=== PATIENT | female | born 1935 | race Caucasian/White ===

== ENCOUNTER 2016-09-14 08:37 | Inpatient (IN) | payer OTHER, MEDICARE ==
[2016-09-14] MEDS ORDERED: ADACEL TDaP IM ONE ×2 (08:53→08:55)
--- NOTE | 2016-09-14 08:56 | DR.GENAD ---
HPI - PCP Primary Care Physician: GERA - Complaint/Symptoms Chief Complaint Doctors Comments: Patient complains of weakness; not being able to walk with left sided abdominal and rib pain. States she has been hurting in every joint and has not been able to stand or walk. States she fell at home today hir right side of her head. She has been having dizziness and headache. She is unsure of her last tetanus. 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 Levy in [facility]. She is going to cancer doctor in [place]. She denies chest pain but has SOB at times. She denies dysuria or hematuria. States her mouth is dry and she has not been able to urinate for a while. She has a decreased appetite and has only been eating one bit of food before they take it away. Chief Complaint:: PT. C/O GENERALIZED WEAKNESS FOR A FEW DAYS WHICH WORSENED YESTERDAY. PT. ALSO HAD A FALL THIS MORNING. PT. C/O LOWER BACK PAIN AND ALSO C /O ABDOMINAL PAIN PER EMS. PT. HAS AN ABRASION NOTED TO ABOVE RIGHT EYE BROW. 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" Past Surgical History: Yes Surgical History: Abdominal Surgery, Cholecystectomy, Hysterectomy, Other Past Surgical History Comment: PORT A CATH - Family History History of Family Medical Conditions: Yes Family Medical History: Cancer - Social History Does patient currently use any type of tobacco product: No Have you used tobacco products in the last 12 months: No Type of Tobacco Use: None Does any household member use tobacco: No Alcohol Use: None Do you use any recreational Drugs:: No Lives With: Spouse Lives Where: Home - infectious screening In the last 2 months have you had wt loss of >10#?: NO Have you had fever, night sweats or hemotysis?: No Have you traveled outside the country in the last 6 months?: No Isolation: Standard ROS - Review of Systems Constitutional: No Symptoms Reported, Weakness, Loss of Appetite. negative: See HPI, Chills, Diaphoresis, Fever, Malaise, Irritable, Fatigue, Other Eyes: No Symptoms Reported. negative: See HPI, Eye Pain, Blurred Vision, Tearing, Discharge, Photophobia, Diplopia, Other ENTM: No Symptoms Reported Respiratoy: No Symptoms Reported, Short of Breath. negative: See HPI, Productive Cough, Non-Productive Cough, Moist Cough, Dry Cough, Hacking Cough, Barking Cough, Brassy Cough, Orthopnea, Stridor, Wheezing, Hemoptysis, Other Cardiovascular: No Symptoms Reported. negative: See HPI, Chest Pain, Edema, Palpitations, Syncope, Cyanosis, Skin Mottling, Other Gastrointestinal/Abdominal: No Symptoms Reported, Abdominal Pain (left CVA and LUQ pain). negative: See HPI, Constipation, Diarrhea, Nausea, Vomiting, Food Intolerance, Other Genitourinary: No Symptoms Reported. negative: See HPI, Discharge, Dysuria, Frequency, Hematuria, Pain, Bleeding, Other Neurological: No Symptoms Reported, Headache, Weakness, Problems Walking. negative: See HPI, Anxiety, Depressed, Emotional Problems, Numbness, Paresthesia , Pre-existing Deficit, Seizure, Tingling, Tremors, Dizziness, Speech Problem, Other Musculoskeletal: No Symptoms Reported, Back Pain, Left, Rib(s) Integumentary: No Symptoms Reported, Lesions (right frontotemporal 3-4 cm abrasion), Wound Hematologic/Lymphatic: No Symptoms Reported. negative: See HPI, Anemia, Blood Clots, Easy Bleeding, Easy Bruising, Swollen Glands, Lymphadenopathy, Other Endocrine: No Symptoms Reported Psychiatric: No Symptoms Reported PE - Vital Signs Vitals: Temperature 100.5 F Pulse Rate [Apical] 99 Pulse Rate 118 Respiratory Rate 22 Blood Pressure [Left Arm] 148/78 Blood Pressure [Right Arm] 117/69 Blood Pressure 128/57 O2 Sat by Pulse Oximetry 96 - General Limitations: No Limitations General Appearance: Alert, In No Apparent Distress (disorientated) - Head Head Exam: Normal Inspection, Normocephalic. negative: Atraumatic (right frontal area with a 4 cm abrasion) - Eyes Eye exam: Normal Appearance, PERRL, EOMI. negative: Scleral Icterus, Conjunctival Injection, Nystagmus, Miosis, Mydrasis, Periorbital Swelling, Periorbital Tenderness, Other - ENT ENT Exam: Normal Exam, Normal Oropharynx, Normal External Ear Exam, Mucous Membranes Moist, TM's Normal Bilaterally External Ear Exam: Normal External Inspection TM/Canal Exam: Bilateral Normal Nose Exam: Normal Nose Exam. negative: Sinus Tenderness, Nasal Deviation, Crepitus, Septal Hematoma, Laceration, Abrasion, Other Mouth Exam: Normal Inspection. negative: Drooling, Trismus, Lip Swelling, Tongue Elevation, Tongue Swelling, Laceration, Other Throat Exam: Normal Inspection - Neck Neck Exam: Normal Inspection, Full ROM, Trachea Midline. negative: Tenderness, Meningismus, Lymphadenopathy, Thyromegaly, Other - Chest Chest Inspection: Normal Inspection, Symmetric Chest Wall Rise. negative: Tenderness, Rash, Abscess, Other - Respiratory Respiratory Exam: Normal Lung Sounds Bilat Respiratory Exam: Bilateral Clear to Auscultation - Cardiovascular Cardiovascular Exam: Regular Rate, Normal Rhythm, Normal Heart Sounds, Systolic Murmur (holosystolic murmur) - Abdominal Exam Abdominal Exam: Normal Inspection, Normal Bowel Sounds, Soft, Tenderness (LUQ tenderness;left rib tenderness) Abdominal Tenderness: LUQ, Mild - Extremities Extremities Exam: Normal Inspection, Full ROM, Tenderness (left knee with crepitus on flexion; no swelling or erythema), Normal Capillary Refill. negative: Edema (right lower leg with erythema, warm, tender on palpation.) - Back Back Exam: Normal Inspection, Full ROM - Neurologic Neurological Exam: Alert, Oriented X3, CN II-XII Intact, Reflexes Normal. negative: Normal Gait (gait not tested) - Psychiatric Psychiatric Exam: Normal Affect, Normal Mood - Skin Skin Exam: Warm, Dry, Intact, Normal Color. negative: Rash, Cyanosis, Diaphoresis, Erythema, Pallor, Mottled, Other Course - Consultation Called: 11:43 Call Returned: 11:43 (Dr. Watson to admit) - Education/Counseling Education/Counseling: Patient, Family Educated On: Treatment, Diagnosis, Needs for Follow Up ROR - Labs Reviewed Laboratory Results Reviewed?: Yes (all labs and x-ray results reviewed and discussed with patient and spouse) Result Diagrams: 09/14/16 09:18 09/14/16 09:18 Laboratory: WBC 9.2 X10^3/uL (3.6-10.0) 09/14/16 09:18 RBC 3.28 X10^6/uL (3.5-5.4) L 09/14/16 09:18 Hgb 9.5 g/dL (12.0-16.0) L 09/14/16 09:18 Hct 28.5 % (36.0-47.0) L 09/14/16 09:18 MCV 86.9 fL (80.0-100.0) 09/14/16 09:18 MCH 29.1 pg (27.0-34.0) 09/14/16 09:18 MCHC 33.5 g/dL (33.0-35.0) 09/14/16 09:18 RDW 18.3 % (11.6-16.5) H 09/14/16 09:18 Plt Count 229 X10^3/uL (150.0-450.0) 09/14/16 09:18 Plt Count Comment Adequate (ADEQUATE) 09/14/16 09:18 MPV 7.3 fL (7.4-11.0) L 09/14/16 09:18 Neut % 90.4 % (42.0-75.0) H 09/14/16 09:18 Lymph % 4.8 % (21.0-51.0) L 09/14/16 09:18 [place] % 3.4 % (0.0-13.0) 09/14/16 09:18 Eos % 1.2 % (0.9-2.9) 09/14/16 09:18 Baso % 0.2 % (0.2-1.0) 09/14/16 09:18 Neut # 8.3 x10^3/uL (2.2-4.8) H 09/14/16 09:18 Lymph # 0.4 X10^3/uL (1.3-2.9) L 09/14/16 09:18 [place] # 0.3 x10^3/uL (0.3-0.8) 09/14/16 09:18 Eos # 0.1 x10^3/uL (0.0-0.2) 09/14/16 09:18 Baso # 0.0 X10^3/uL (0.0-0.1) 09/14/16 09:18 Absolute Nucleated RBC 0.0 /100WBC 09/14/16 09:18 Total Counted 100 09/14/16 09:18 Neutrophils % (Manual) 90 % (39-76) H 09/14/16 09:18 Lymphocytes % (Manual) 8 % (13-43) L 09/14/16 09:18 Monocytes % (Manual) 1 % (4-9) L 09/14/16 09:18 Eosinophils % (Manual) 1 % (0-6) 09/14/16 09:18 Plt Morphology Comment Normal (NORMAL) 09/14/16 09:18 RBC Morphology Normal (NORMAL) 09/14/16 09:18 INR Target Range - 09/14/16 09:18 INR 1.05 (0.8-1.3) 09/14/16 09:18 PTT 30.4 SECONDS (22.9-36.5) 09/14/16 09:18 PTT Comment - 09/14/16 09:18 Sodium 137 mmol/L (136-145) 09/14/16 09:18 Corrected Sodium TNP 09/14/16 09:18 Potassium 4.9 mmol/L (3.5-5.1) 09/14/16 09:18 Chloride 103 mmol/L (98-107) 09/14/16 09:18 Carbon Dioxide 27.3 mmol/L (21-32) 09/14/16 09:18 BUN 63 mg/dL (7-18) H 09/14/16 09:18 Creatinine 2.69 mg/dL (0.55-1.02) H 09/14/16 09:18 Est GFR (MDRD) Af Amer 22 (>60) L 09/14/16 09:18 Est GFR (MDRD) Non-Af 18 (>60) L 09/14/16 09:18 Glucose 100 mg/dL (65-99) H 09/14/16 09:18 Calcium 7.9 mg/dL (8.5-10.1) L 09/14/16 09:18 Corrected Calcium 9.1 mg/dL (8.5-10.1) 09/14/16 09:18 Magnesium 1.7 mg/dL (1.7-2.9) 09/14/16 09:18 Total Bilirubin 0.40 mg/dL (0.2-1.0) 09/14/16 09:18 AST 55 Units/L (15-37) H 09/14/16 09:18 ALT 21 Units/L (12-78) 09/14/16 09:18 Alkaline Phosphatase 84 Units/L (46-116) 09/14/16 09:18 Creatine Kinase 900 Units/L (26-192) H 09/14/16 09:18 CK-MB (CK-2) 3.7 ng/mL (0-4.0) 09/14/16 09:18 CK/CKMB % Calc 0.4 % (<4) 09/14/16 09:18 Troponin I 0.02 ng/mL (0-1.5) 09/14/16 09:18 Total Protein 6.6 g/dL (6.4-8.2) 09/14/16 09:18 Albumin 2.5 g/dL (3.4-5.0) L 09/14/16 09:18 Globulin 4.1 g/dL (2.5-4.5) 09/14/16 09:18 Albumin/Globulin Ratio 0.6 Ratio (1.1-2.1) L 09/14/16 09:18 Amylase 90 Units/L (25-115) 09/14/16 09:18 Lipase 63 Units/L (73-393) L 09/14/16 09:18 Specimen Type Catherized urine 09/14/16 10:33 Urine Color Yellow (YELLOW) 09/14/16 10:33 Urine Appearance Hazy (CLEAR) 09/14/16 10:33 Urine pH 5.0 (5.0 - 8.0) 09/14/16 10:33 Ur Specific Tarrs 1.015 (1.000-1.030) 09/14/16 10:33 Urine Protein 1+ (NEGATIVE) 09/14/16 10:33 Urine Glucose (UA) Negative (NEGATIVE) 09/14/16 10:33 Urine Ketones Negative (NEGATIVE) 09/14/16 10:33 Urine Occult Blood 1+ (NEGATIVE) 09/14/16 10:33 Urine Nitrite Negative (NEGATIVE) 09/14/16 10:33 Urine Bilirubin 1+ (NEGATIVE) 09/14/16 10:33 Urine Urobilinogen 1+ (NORMAL) 09/14/16 10:33 Ur Leukocyte Esterase 1+ (NEGATIVE) 09/14/16 10:33 Urine RBC 0-2 /HPF (NEGATIVE) 09/14/16 10:33 Urine WBC 0-3 /HPF (NEGATIVE) 09/14/16 10:33 Ur Squamous Epith Cells Negative /HPF (NEGATIVE) 09/14/16 10:33 Urine Bacteria Trace /HPF (NEGATIVE) 09/14/16 10:33 Ur Culture Indicated? No/not indicated 09/14/16 10:33 - Other Results Comments: CTabdomena nd pelvis: keaton cute abdominopelvic pathology. Right lowe lobe pneumonia. Old left ribs, spine and left femur fractures. - XRAY XRAY Interpreted by: Radiologist (CT head: Diffuse demineralization without acue abnormality. CT lumbar spine: Chronic changes of lumbar spine. Bilateral renal cys), Both (CXR: right lower lobe pneumonia) XRAY Findings: Ct brain: No acute intracranial abnormality. advancin chronological age martinez - EKG Rate: 106 Rhythm: ST Block: None Hypertrophy: None ST: Nonsp - Diagnosis Discharge Problem: Urinary tract infection, Dehydration, Chronic kidney disease, Bilateral renal cysts, old fracture lef ribs, spine, left femur, Cellulitis of right leg Right lower lobe pneumonia Qualifiers: Pneumonia type: due to unspecified organism Qualified Code(s): J18.1 - Lobar pneumonia, unspecified organism Rhabdomyolysis Qualifiers: Encounter type: initial encounter - Discharge Plan Disposition: ADMITTED INPATIENT Condition: Stable - Follow ups/Referrals - Instructions
[2016-09-14] MEDS ORDERED: NS 1000 ML 1,000 ML IV SCH (09:00)
[2016-09-14 09:36] LABS: BASOPHILS % (AUTO) 0.2 % (0.2-1.0); EOSINOPHILS # (AUTO) 0.1 x10^3/uL (0.0-0.2); EOSINOPHILS % (AUTO) 1.2 % (0.9-2.9); HEMATOCRIT 28.5 % (36.0-47.0); HEMOGLOBIN 9.5 g/dL (12.0-16.0); LYMPHOCYTES # (AUTO) 0.4 X10^3/uL (1.3-2.9); LYMPHOCYTES % (AUTO) 4.8 % (21.0-51.0); MEAN CORPUSCULAR HEMOGLOBIN 29.1 pg (27.0-34.0); MEAN CORPUSCULAR HGB CONC 33.5 g/dL (33.0-35.0); MEAN CORPUSCULAR VOLUME 86.9 fL (80.0-100.0); MEAN PLATELET VOLUME 7.3 fL (7.4-11.0); MONOCYTES # (AUTO) 0.3 x10^3/uL (0.3-0.8); MONOCYTES % (AUTO) 3.4 % (0.0-13.0); NEUTROPHILS # (AUTO) 8.3 x10^3/uL (2.2-4.8); NEUTROPHILS % (AUTO) 90.4 % (42.0-75.0); PLATELET COUNT 229 X10^3/uL (150.0-450.0); RED BLOOD COUNT 3.28 X10^6/uL (3.5-5.4); RED CELL DISTRIBUTION WIDTH 18.3 % (11.6-16.5); WHITE BLOOD COUNT 9.2 X10^3/uL (3.6-10.0)
[2016-09-14 09:49] LABS: BLOOD UREA NITROGEN 63 mg/dL (7-18); CALCIUM 7.9 mg/dL (8.5-10.1); CARBON DIOXIDE 27.3 mmol/L (21-32); CHLORIDE 103 mmol/L (98-107); CREATININE 2.69 mg/dL (0.55-1.02); GLUCOSE 100 mg/dL (65-99); SODIUM 137 mmol/L (136-145); TROPONIN I 0.02 ng/mL (0-1.5); eGFR BLACK RACES 22 (>60); eGFR NON BLACK RACES 18 (>60)
[2016-09-14 09:53] LABS: ALANINE AMINOTRANSFERASE 21 Units/L (12-78); ALBUMIN 2.5 g/dL (3.4-5.0); ALKALINE PHOSPHATASE 84 Units/L (46-116); AMYLASE 90 Units/L (25-115); ASPARTATE AMINO TRANSFERASE 55 Units/L (15-37); CKMB % 0.4 % (<4); COR CA(FOR HYPOALB) 9.1 mg/dL (8.5-10.1); CREATINE KINASE 900 Units/L (26-192); CREATINE KINASE MB 3.7 ng/mL (0-4.0); LIPASE 63 Units/L (73-393); MAGNESIUM 1.7 mg/dL (1.7-2.9); TOTAL PROTEIN 6.6 g/dL (6.4-8.2)
[2016-09-14 09:57] LABS: PLATELET MORPHOLOGY COMMENT NORMAL (NORMAL)
--- NOTE | 2016-09-14 10:03 | CT ---
HISTORY: Weakness. Fall. Study: CT brain without contrast. Dose reduction techniques including Automated Exposure Control (A EC) and adjustment of mA and kV were utilized. Comparison: March 10, 2016. Technique: Multiple axial images of the brain were obtained from the skull base to the vertex without administr ation of IV contrast. Findings: Examination through the mid brain is severely limited secondary to patient motion. There is moderate ventricular, as well as, sulcal and cisternal prominence, in addition to, atheroscleroti c changes of the proximal intracranial carotid and vertebral arteries, which is not out of proportio n to the patient's chronological age. Scattered and confluent areas of periventricular, deep and sub cortical white matter hypoattenuation are noted bilaterally likely reflecting ischemic microangiopat hy in a patient this age. No acute intraparenchymal hemorrhage or mass can be identified within the limitations of the study. No extra-axial fluid collections are seen. No alteration in the attenuat ion of the brain parenchyma can be identified to suggest acute or subacute ischemic change. Extracra nial structures are grossly unremarkable. IMPRESSION: 1. Limited examination of the brain secondary to patient motion. There is no acute intracranial abn ormality evident within the limitations of the exam. 2. Changes of advancing chronological age are noted. Reported By:
--- NOTE | 2016-09-14 10:12 | CT ---
HISTORY: Weakness. Low back pain. Abdominal pain after fall. Study: CT abdomen and pelvis without contrast. Dose reduction techniques including Automated Exposur e Control (AEC) and adjustment of mA and kV were utilized. Comparison: September 01, 2015.. Technique: Multiple axial images of the abdomen and pelvis were obtained from the lung bases to the pubic symphysis without the administration of IV contrast. Findings: Optimal evaluation for acute posttraumatic injury is limited given the lack of intravenous contrast. There are consolidations present within the right lower lobe most compatible with pneumon ia. The gallbladder is surgically absent. The liver, pancreas, spleen and adrenal glands are unremar kable in their noncontrast CT appearance. There are multiple large renal cysts bilaterally. There is a moderate amount of stool throughout the colon with sigmoid diverticulosis noted. There is no evid ence of diverticulitis. There is no small bowel dilatation. There is no significant mesenteric stran ding or lymphadenopathy. There is no intraperitoneal free air or free fluid. The urinary bladder is well distended and grossly unremarkable. There is severe atherosclerotic disease of the nonaneurysma l abdominal aorta without periaortic stranding evident. There is edema noted within the subcutaneous adipose tissues of the lower abdomen and pelvis. There is diffuse demineralization of the bony stru ctures. There is levoscoliosis of the lumbar spine with associated multilevel degenerative disc dise ase. There are unchanged mild compression deformities of the at T11, L3 and L5 vertebral bodies. Old left lower rib fractures are noted. There is an old fracture of the greater trochanter of the left femur. IMPRESSION: 1. No acute abdominopelvic pathology is evident given the lack of intravenous contrast. 2. Right lower lobe pneumonia. 3. Old fractures of the left ribs, spine and left femur as above. 4. Unchanged bilateral renal cyst. Reported By:
--- NOTE | 2016-09-14 10:16 | CT ---
HISTORY: Weakness. Low back pain after fall. Study: CT lumbar spine without contrast. Dose reduction techniques including Automated Exposure Cont rol (AEC) and adjustment of mA and kV were utilized. Comparison: CT of the abdomen and pelvis dated September 01, 2015. Technique: Multiple axial images of the lumbar spine were obtained from the thoracolumbar junction to the sacrum without the administration of IV contrast. Sagittal and coronal reformats were perfor med and reviewed. Findings: There is diffuse demineralization of the bony structures. There is levoscoliosis of the radha mbar spine with associated multilevel degenerative disc disease. There are mild unchanged compressio n deformities of the T11, L3 and L5 vertebral bodies. Sagittal alignment of the lumbar spine is main tained. No acute cortical disruption or dislocation is evident. No central canal compromise by acute bony fragments is evident. Old fracture of the greater trochanter of the left femur is noted. Sever al large bilateral renal cysts are noted. There is atherosclerotic disease of the nonaneurysmal abdo renetta aorta and branch vessels. There is sigmoid diverticulosis. IMPRESSION: Chronic changes of the lumbar spine as above without acute bony abnormality evident. Reported By:
--- NOTE | 2016-09-14 10:19 | CT ---
HISTORY: Weakness. Low back pain after fall. Study: CT of the pelvis without contrast. Comparison: CT of the abdomen and pelvis dated September 01, 2015. Technique: Multiple axial images of the pelvis were obtained from the level of the iliac crests thro ugh the pubic symphysis without contrast. Reformatted images in the sagittal an coronal planes were also performed. Findings: There is diffuse demineralization of the bony structures. Levoscoliosis of the lumbar spine with ass ociated multilevel degenerative disc disease is noted. There are chronic appearing compression defor mities of the L3 and L5 vertebral bodies. Old fracture of the greater trochanter of the left femur i s noted. No acute cortical disruption or dislocation is evident. The bony pelvis appears grossly int act. There is no widening of the SI joints or pubic symphysis . The femoral heads are well seated in the acetabula bilaterally. IMPRESSION: Diffuse demineralization without acute bony abnormality of the pelvis evident. Chronic changes as ab ove. Reported By:
[2016-09-14] MEDS ORDERED: NS 1000 ML 1,000 ML IV ONE (10:21)
--- NOTE | 2016-09-14 10:31 | RAD ---
HISTORY: Weakness. Fall. Study: Single-view chest. Comparison: September 01, 2015. Findings: The trachea is midline. There is a right IJ Extiin-W-Fsgm with tip projecting over the proximal SVC. The cardiac silhouette is at the upper limits of normal in size. There is elevation of the right h emidiaphragm with right basilar airspace opacities noted. The left lung is clear. There is no pneumo thorax. Old left lower rib fractures are noted. IMPRESSION: Right lower lobe pneumonia. Reported By:
[2016-09-14 10:41] LABS: BILIRUBIN,URINE 1+ (NEGATIVE); BLOOD/HEMOGLOBIN,URINE 1+ (NEGATIVE); GLUCOSE, URINE NEGATIVE (NEGATIVE); KETONES,URINE NEGATIVE (NEGATIVE); LEUKOCYTE ESTERASE ,URINE 1+ (NEGATIVE); NITRITES,URINE NEGATIVE (NEGATIVE); PROTEIN,URINE 1+ (NEGATIVE); UROBILINOGEN,URINE 1+ (NORMAL)
[2016-09-14 10:51] LABS: APPEARANCE,URINE HAZY (CLEAR); BACTERIA,URINE TRACE /HPF (NEGATIVE); COLOR,URINE YELLOW (YELLOW); RBC,URINE 0-2 /HPF (NEGATIVE); SQUAMOUS EPITHELIAL CELL,UR NEGATIVE /HPF (NEGATIVE)
[2016-09-14] MEDS ORDERED: ROCEPHIN VIAL 1 GM 1 GM in NS 50 ML IV + SPIKE MINIBAG* 50 ML IV ONE (11:03)
[2016-09-14] MEDS ORDERED: ROCEPHIN 1 GM IV PREMIX * OUT OF STOCK 50 ML IV ONE (11:17)
[2016-09-14] MEDS ORDERED: TUSSIONEX PENNKINETIC SUSP PO PRN (11:47)
[2016-09-14] MEDS ORDERED: ATIVAN TAB 1 MG PO PRN (12:32)
[2016-09-14] MEDS ORDERED: NORCO 7.5/325 MG TAB PO PRN (12:32)
[2016-09-14] MEDS ORDERED: PREGABALIN PO SCH (12:45)
[2016-09-14] MEDS ORDERED: PATIENT'S HOME MEDICATION (Losartan/Hydrochlorothiazide [Losartan-Hctz 100-25 Mg Tab] 1 TA PO SCH (12:45)
[2016-09-14] MEDS: NS 1/2 1000 ML IV 1,000 ML IV SCH ×2 (13:14→18:39)
[2016-09-14] MEDS: LEVAQUIN PREMIX IV 500 MG 500 MG/100 ML BAG IV SCH (14:22)
[2016-09-14] MEDS: CYMBALTA PO SCH (14:23)
[2016-09-14] MEDS: ROBITUSSIN DM PO SCH ×3 (14:23→21:06)
[2016-09-14] MEDS: NORVASC TAB 10 MG PO SCH (14:23)
[2016-09-14] MEDS: MOBIC TAB 15 MG PO SCH (14:23)
[2016-09-14] MEDS: DUONEB 0.5 MG/3 MG NEB SCH ×2 (16:29→20:29)
[2016-09-14] MEDS ORDERED: NS 1/2 1000 ML IV 1,000 ML IV ONE (18:37)
[2016-09-14] MEDS ORDERED: PATIENT'S HOME MEDICATION (Tizanidine Hcl [Zanaflex 4 Mg] 4 MG) PO SCH (21:00)
[2016-09-14] MEDS: LYRICA CAP 100 MG PO SCH (21:06)
[2016-09-14] MEDS: ZANAFLEX PO SCH (21:12)
[2016-09-15] MEDS: DUONEB 0.5 MG/3 MG NEB SCH ×6 (00:39→20:44)
[2016-09-15] MEDS ORDERED: NS 1/2 1000 ML IV 1,000 ML IV ONE ×2 (05:59→16:09)
[2016-09-15] MEDS: NS 1/2 1000 ML IV 1,000 ML IV SCH ×2 (06:07→16:11)
[2016-09-15 06:11] LABS: BASOPHILS % (AUTO) 0.3 % (0.2-1.0); EOSINOPHILS # (AUTO) 0.1 x10^3/uL (0.0-0.2); EOSINOPHILS % (AUTO) 2.1 % (0.9-2.9); HEMATOCRIT 20.9 % (36.0-47.0); HEMOGLOBIN 7.2 g/dL (12.0-16.0); LYMPHOCYTES # (AUTO) 0.5 X10^3/uL (1.3-2.9); LYMPHOCYTES % (AUTO) 9.9 % (21.0-51.0); MEAN CORPUSCULAR HEMOGLOBIN 29.8 pg (27.0-34.0); MEAN CORPUSCULAR HGB CONC 34.3 g/dL (33.0-35.0); MEAN CORPUSCULAR VOLUME 86.7 fL (80.0-100.0); MEAN PLATELET VOLUME 7.4 fL (7.4-11.0); MONOCYTES # (AUTO) 0.3 x10^3/uL (0.3-0.8); MONOCYTES % (AUTO) 5.7 % (0.0-13.0); NEUTROPHILS # (AUTO) 4.3 x10^3/uL (2.2-4.8); PLATELET COUNT 188 X10^3/uL (150.0-450.0); RED BLOOD COUNT 2.41 X10^6/uL (3.5-5.4); RED CELL DISTRIBUTION WIDTH 18.2 % (11.6-16.5); WHITE BLOOD COUNT 5.3 X10^3/uL (3.6-10.0)
[2016-09-15 06:49] LABS: ALANINE AMINOTRANSFERASE 13 Units/L (12-78); ALBUMIN 1.8 g/dL (3.4-5.0); ALKALINE PHOSPHATASE 59 Units/L (46-116); ASPARTATE AMINO TRANSFERASE 35 Units/L (15-37); BLOOD UREA NITROGEN 60 mg/dL (7-18); CALCIUM 7.3 mg/dL (8.5-10.1); CARBON DIOXIDE 24.2 mmol/L (21-32); CHLORIDE 105 mmol/L (98-107); CKMB % 0.3 % (<4); COR CA(FOR HYPOALB) 9.1 mg/dL (8.5-10.1); CREATINE KINASE 388 Units/L (26-192); CREATINE KINASE MB 1.1 ng/mL (0-4.0); CREATININE 2.25 mg/dL (0.55-1.02); GLUCOSE 89 mg/dL (65-99); SODIUM 137 mmol/L (136-145); TOTAL PROTEIN 5.2 g/dL (6.4-8.2); TROPONIN I < 0.02 ng/mL (0-1.5); eGFR BLACK RACES 27 (>60); eGFR NON BLACK RACES 22 (>60)
[2016-09-15 07:02] LABS: ANISOCYTOSIS 2+; HYPOCHROMASIA 2+; MICROCYTOSIS 1+; PLATELET MORPHOLOGY COMMENT NORMAL (NORMAL); POIKILOCYTOSIS SLIGHT
[2016-09-15] MEDS: ROCEPHIN VIAL 1 GM 1 GM in NS 50 ML IV + SPIKE MINIBAG* 50 ML IV SCH (08:53)
[2016-09-15] MEDS: ULTRAM PO PRN (08:54)
[2016-09-15] MEDS: ROBITUSSIN DM PO SCH ×4 (08:54→21:14)
[2016-09-15] MEDS: LYRICA CAP 100 MG PO SCH ×2 (08:54→21:13)
[2016-09-15] MEDS: MOBIC TAB 15 MG PO SCH (08:54)
[2016-09-15] MEDS: CYMBALTA PO SCH (08:56)
[2016-09-15 09:34] VITALS: BMI 16.9
[2016-09-15] MEDS: NORVASC TAB 10 MG PO SCH (10:28)
[2016-09-15] MEDS: HYZAAR 50/12.5 MG PO SCH (14:12)
[2016-09-15] MEDS: ZANAFLEX PO SCH (21:14)
[2016-09-16] MEDS: DUONEB 0.5 MG/3 MG NEB SCH ×4 (01:30→12:00)
[2016-09-16] MEDS: ULTRAM PO PRN (05:56)
[2016-09-16 06:06] LABS: ALANINE AMINOTRANSFERASE 14 Units/L (12-78); ALBUMIN 1.8 g/dL (3.4-5.0); ALKALINE PHOSPHATASE 65 Units/L (46-116); ASPARTATE AMINO TRANSFERASE 32 Units/L (15-37); BLOOD UREA NITROGEN 53 mg/dL (7-18); CALCIUM 7.7 mg/dL (8.5-10.1); CARBON DIOXIDE 24.9 mmol/L (21-32); CHLORIDE 106 mmol/L (98-107); COR CA(FOR HYPOALB) 9.5 mg/dL (8.5-10.1); CREATININE 1.76 mg/dL (0.55-1.02); GLUCOSE 82 mg/dL (65-99); SODIUM 138 mmol/L (136-145); TOTAL PROTEIN 5.5 g/dL (6.4-8.2); eGFR BLACK RACES 35 (>60); eGFR NON BLACK RACES 29 (>60)
[2016-09-16 06:17] LABS: BASOPHILS % (AUTO) 0.2 % (0.2-1.0); EOSINOPHILS # (AUTO) 0.1 x10^3/uL (0.0-0.2); EOSINOPHILS % (AUTO) 2.8 % (0.9-2.9); HEMATOCRIT 22.9 % (36.0-47.0); HEMOGLOBIN 7.9 g/dL (12.0-16.0); LYMPHOCYTES # (AUTO) 0.4 X10^3/uL (1.3-2.9); LYMPHOCYTES % (AUTO) 9.7 % (21.0-51.0); MEAN CORPUSCULAR HEMOGLOBIN 29.7 pg (27.0-34.0); MEAN CORPUSCULAR HGB CONC 34.4 g/dL (33.0-35.0); MEAN CORPUSCULAR VOLUME 86.3 fL (80.0-100.0); MEAN PLATELET VOLUME 7.4 fL (7.4-11.0); MONOCYTES # (AUTO) 0.3 x10^3/uL (0.3-0.8); MONOCYTES % (AUTO) 6.7 % (0.0-13.0); NEUTROPHILS # (AUTO) 3.3 x10^3/uL (2.2-4.8); NEUTROPHILS % (AUTO) 80.6 % (42.0-75.0); PLATELET COUNT 208 X10^3/uL (150.0-450.0); RED BLOOD COUNT 2.65 X10^6/uL (3.5-5.4); RED CELL DISTRIBUTION WIDTH 18.7 % (11.6-16.5); WHITE BLOOD COUNT 4.1 X10^3/uL (3.6-10.0)
[2016-09-16 06:37] LABS: HYPOCHROMASIA 1+; PLATELET MORPHOLOGY COMMENT NORMAL (NORMAL)
[2016-09-16] MEDS ORDERED: NS 1/2 1000 ML IV 1,000 ML IV ONE (07:06)
[2016-09-16] MEDS: NS 1/2 1000 ML IV 1,000 ML IV SCH (07:10)
--- NOTE | 2016-09-16 07:54 | RAD ---
AP Chest Indication: Pneumonia followup with cough Comparison: 09/14/2016 Findings: The trachea is midline. The cardiac silhouette is unremarkable. The there is elevation the right h emidiaphragm with linear opacity within the right lung base likely representing subsegmental/gaby sive atelectasis. Neither lung demonstrates new airspace disease pleural effusion or pneumothorax. S table positioning of right chest wall [employer] with its tip projecting of the upper SVC. No new osse ous abnormality. IMPRESSION: 1. Right hemidiaphragm elevation with linear opacities within the right lung base likely represents subsegmental/compressive atelectasis. No definite residual or new infiltrate identified. Reported By:
[2016-09-16] MEDS: HYZAAR 50/12.5 MG PO SCH (08:22)
[2016-09-16] MEDS: CYMBALTA PO SCH (08:22)
[2016-09-16] MEDS: MOBIC TAB 15 MG PO SCH (08:23)
[2016-09-16] MEDS: LYRICA CAP 100 MG PO SCH (08:23)
[2016-09-16] MEDS: NORVASC TAB 10 MG PO SCH (08:23)
[2016-09-16] MEDS: ROBITUSSIN DM PO SCH ×2 (08:24→14:08)
[2016-09-16] MEDS: ROCEPHIN VIAL 1 GM 1 GM in NS 50 ML IV + SPIKE MINIBAG* 50 ML IV SCH (08:24)
[2016-09-16] MEDS: LEVAQUIN PREMIX IV 500 MG 500 MG/100 ML BAG IV SCH (11:14)
[2016-09-16 11:39] VITALS: BP 115/57
--- NOTE | 2016-09-26 23:13 | DR.H&P ---
H&P - History & Physical for Day of: H&P Date: 09/14/16 - Chief Complaint Chief Complaint: Weakness and recent fall. - Allergies Allergies/Adverse Reactions: Allergies Allergy/AdvReac Type Severity Reaction Status Date / Time celecoxib [From Celebrex] Allergy Verified 09/14/16 11:54 NSAIDS (Non-Steroidal Allergy Verified 09/14/16 11:54 Anti-Inflamma promethazine [From Phenergan] Allergy Verified 09/14/16 11:54 - History of Present Illness History of Present Illness: Patient complains of weakness; not being able to walk with left sided abdominal and rib pain. States she has been hurting in every joint and has not been able to stand or walk. States she fell at home today hir right side of her head. She has been having dizziness and headache. She is unsure of her last tetanus. 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 Levy in [facility]. She is going to cancer doctor in [place]. She denies chest pain but has SOB at times. She denies dysuria or hematuria. States her mouth is dry and she has not been able to urinate for a while. She has a decreased appetite and has only been eating one bit of food before they take it away. - Past Medical History Past Medical History: Hypertension - Past Surgical History Surgical History: Abdominal Surgery, Cholecystectomy, Ortho Surgery - Family History Family Medical History: Cancer - Social History Does patient currently use any type of tobacco product: No Have you used tobacco products in the last 12 months: No Type of Tobacco Use: None How many years tobacco product used: 50 Does any household member use tobacco: No Alcohol Use: None Drug Use: Prescription Drugs - Medications Home Medications: Potassium Chloride 1 tab PO DAILY 09/14/16 [History Confirmed 09/15/16] Tramadol HCl [Tramadol HCl] 1 tab PO Q4-6H PRN 09/14/16 [History Confirmed 09/15] - Review of Systems Constitutional: Weakness, Malaise Eyes: No Symptoms Reported ENT: No Symptoms Reported Respiratory: See HPI, Cough, Shortness of Breath Cardiovascular: No Symptoms Reported Gastrointestinal: No Symptoms Reported Genitourinary: No Symptoms Reported Musculoskeletal: Back Pain Skin: No Symptoms Reported Neurological: No Symptoms Reported - Physical Exam Vital Signs: Temperature 97.8 F Pulse Rate [Right Brachial] 92 Pulse Rate [Left Brachial] 82 Pulse Rate [Apical] 105 Pulse Rate 80 Respiratory Rate 20 Blood Pressure [Left Arm] 115/58 Blood Pressure [Right Arm] 115/57 O2 Sat by Pulse Oximetry 95 Oriented: Normal Eyes: Normal Ear: Normal Nose: Normal Throat: Normal Respiratory: Diminished Throughout, RLL Rhonchi Cardiovascular: Normal : Normal Auscultation: Bowel Sounds: Normal Palpation: Normal Tenderness: Diffuse Skin: Normal Musculoskeletal: Normal Psychiatric: Normal Mood Description: Calm Affect: Normal Speech Pattern: Clear - Assessment/Plan (1) Dehydration Status: Acute (2) Rhabdomyolysis Qualifiers: Rhabdomyolysis type: R Encounter type: initial encounter Status: Acute (3) Right lower lobe pneumonia Qualifiers: Pneumonia type: due to unspecified organism Aspiration pneumonia type: A Qualified Code(s): J18.1 - Lobar pneumonia, unspecified organism Status: Acute
--- NOTE | 2016-09-26 23:18 | PCM.DCPLAN ---
Discharge Summary - Admission Date Date of Admission: 09/14/16 - Discharge Date Discharge Date: 09/16/16 - Admission Diagnoses (1) Dehydration Status: Acute (2) Rhabdomyolysis Status: Acute (3) Right lower lobe pneumonia Status: Acute (4) Chronic kidney disease Status: Acute (5) UTI (urinary tract infection) Status: Acute - Discharge Diagnoses Discharge Diagnosis: same as admission diagnosis - Discharge Medications Discharge Medications: Potassium Chloride 1 tab PO DAILY 09/14/16 [History] Tramadol HCl [Tramadol HCl] 1 tab PO Q4-6H PRN 09/14/16 [History] Sulfamethoxazole-Trimethoprim [BACTRIM DS TAB 800/160 MG *] 1 tab PO BID #14 tab 09/16/16 [Rx] - Hospital Course Vital Signs: Temperature 97.8 F Pulse Rate [Right Brachial] 92 Pulse Rate [Left Brachial] 82 Pulse Rate [Apical] 105 Pulse Rate 80 Respiratory Rate 20 Blood Pressure [Left Arm] 115/58 Blood Pressure [Right Arm] 115/57 O2 Sat by Pulse Oximetry 95 Latest Lab Results: Laboratory Last Values WBC 4.1 X10^3/uL (3.6-10.0) 09/16/16 03:45 RBC 2.65 X10^6/uL (3.5-5.4) L 09/16/16 03:45 Hgb 7.9 g/dL (12.0-16.0) L 09/16/16 03:45 Hct 22.9 % (36.0-47.0) L 09/16/16 03:45 MCV 86.3 fL (80.0-100.0) 09/16/16 03:45 MCH 29.7 pg (27.0-34.0) 09/16/16 03:45 MCHC 34.4 g/dL (33.0-35.0) 09/16/16 03:45 RDW 18.7 % (11.6-16.5) H 09/16/16 03:45 Plt Count 208 X10^3/uL (150.0-450.0) 09/16/16 03:45 Plt Count Comment Adequate (ADEQUATE) 09/16/16 03:45 MPV 7.4 fL (7.4-11.0) 09/16/16 03:45 Neut % 80.6 % (42.0-75.0) H 09/16/16 03:45 Lymph % 9.7 % (21.0-51.0) L 09/16/16 03:45 [place] % 6.7 % (0.0-13.0) 09/16/16 03:45 Eos % 2.8 % (0.9-2.9) 09/16/16 03:45 Baso % 0.2 % (0.2-1.0) 09/16/16 03:45 Neut # 3.3 x10^3/uL (2.2-4.8) 09/16/16 03:45 Lymph # 0.4 X10^3/uL (1.3-2.9) L 09/16/16 03:45 [place] # 0.3 x10^3/uL (0.3-0.8) 09/16/16 03:45 Eos # 0.1 x10^3/uL (0.0-0.2) 09/16/16 03:45 Baso # 0.0 X10^3/uL (0.0-0.1) 09/16/16 03:45 Absolute Nucleated RBC 0.1 /100WBC 09/16/16 03:45 Total Counted 100 09/14/16 09:18 Neutrophils % (Manual) 90 % (39-76) H 09/14/16 09:18 Lymphocytes % (Manual) 8 % (13-43) L 09/14/16 09:18 Monocytes % (Manual) 1 % (4-9) L 09/14/16 09:18 Eosinophils % (Manual) 1 % (0-6) 09/14/16 09:18 Plt Morphology Comment Normal (NORMAL) 09/16/16 03:45 RBC Morphology Abnormal (NORMAL) A 09/16/16 03:45 Hypochromasia 1+ A 09/16/16 03:45 Poikilocytosis Slight A 09/15/16 04:20 Anisocytosis 2+ A 09/15/16 04:20 Microcytosis 1+ A 09/15/16 04:20 INR Target Range - 09/14/16 09:18 INR 1.05 (0.8-1.3) 09/14/16 09:18 PTT 30.4 SECONDS (22.9-36.5) 09/14/16 09:18 PTT Comment - 09/14/16 09:18 Sodium 138 mmol/L (136-145) 09/16/16 03:45 Corrected Sodium TNP 09/16/16 03:45 Potassium 4.6 mmol/L (3.5-5.1) 09/16/16 03:45 Chloride 106 mmol/L (98-107) 09/16/16 03:45 Carbon Dioxide 24.9 mmol/L (21-32) 09/16/16 03:45 BUN 53 mg/dL (7-18) H 09/16/16 03:45 Creatinine 1.76 mg/dL (0.55-1.02) H 09/16/16 03:45 Est GFR (MDRD) Af Amer 35 (>60) L 09/16/16 03:45 Est GFR (MDRD) Non-Af 29 (>60) L 09/16/16 03:45 Glucose 82 mg/dL (65-99) 09/16/16 03:45 Calcium 7.7 mg/dL (8.5-10.1) L 09/16/16 03:45 Corrected Calcium 9.5 mg/dL (8.5-10.1) 09/16/16 03:45 Magnesium 1.7 mg/dL (1.7-2.9) 09/14/16 09:18 Total Bilirubin 0.20 mg/dL (0.2-1.0) 09/16/16 03:45 AST 32 Units/L (15-37) 09/16/16 03:45 ALT 14 Units/L (12-78) 09/16/16 03:45 Alkaline Phosphatase 65 Units/L (46-116) 09/16/16 03:45 Creatine Kinase 388 Units/L (26-192) H 09/15/16 04:20 CK-MB (CK-2) 1.1 ng/mL (0-4.0) 09/15/16 04:20 CK/CKMB % Calc 0.3 % (<4) 09/15/16 04:20 Troponin I < 0.02 ng/mL (0-1.5) 09/15/16 04:20 Total Protein 5.5 g/dL (6.4-8.2) L 09/16/16 03:45 Albumin 1.8 g/dL (3.4-5.0) L 09/16/16 03:45 Globulin 3.7 g/dL (2.5-4.5) 09/16/16 03:45 Albumin/Globulin Ratio 0.5 Ratio (1.1-2.1) L 09/16/16 03:45 Amylase 90 Units/L (25-115) 09/14/16 09:18 Lipase 63 Units/L (73-393) L 09/14/16 09:18 Specimen Type Catherized urine 09/14/16 10:33 Urine Color Yellow (YELLOW) 09/14/16 10:33 Urine Appearance Hazy (CLEAR) 09/14/16 10:33 Urine pH 5.0 (5.0 - 8.0) 09/14/16 10:33 Ur Specific [place] 1.015 (1.000-1.030) 09/14/16 10:33 Urine Protein 1+ (NEGATIVE) 09/14/16 10:33 Urine Glucose (UA) Negative (NEGATIVE) 09/14/16 10:33 Urine Ketones Negative (NEGATIVE) 09/14/16 10:33 Urine Occult Blood 1+ (NEGATIVE) 09/14/16 10:33 Urine Nitrite Negative (NEGATIVE) 09/14/16 10:33 Urine Bilirubin 1+ (NEGATIVE) 09/14/16 10:33 Urine Urobilinogen 1+ (NORMAL) 09/14/16 10:33 Ur Leukocyte Esterase 1+ (NEGATIVE) 09/14/16 10:33 Urine RBC 0-2 /HPF (NEGATIVE) 09/14/16 10:33 Urine WBC 0-3 /HPF (NEGATIVE) 09/14/16 10:33 Ur Squamous Epith Cells Negative /HPF (NEGATIVE) 09/14/16 10:33 Urine Bacteria Trace /HPF (NEGATIVE) 09/14/16 10:33 Ur Culture Indicated? No/not indicated 09/14/16 10:33 Hospital Course: HPI: Patient complains of weakness; not being able to walk with left sided abdominal and rib pain. States she has been hurting in every joint and has not been able to stand or walk. States she fell at home today hir right side of her head. She has been having dizziness and headache. She is unsure of her last tetanus. 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 Boss in [facility]. She is going to cancer doctor in [place]. She denies chest pain but has SOB at times. She denies dysuria or hematuria. States her mouth is dry and she has not been able to urinate for a while. She has a decreased appetite and has only been eating one bit of food before they take it away. The patient was admitted and was given gentle iv hydration and antibiotics. Nebs were administered as well. Patient's labs were monitored and noted improvement. Patient was felt stable and was discharged home to be followed on OP basis. - Discharge Plan Disposition: HOME, SELF-CARE Condition: Stable Prescriptions: Sulfamethoxazole-Trimethoprim [BACTRIM DS TAB 800/160 MG *] 1 tab PO BID #14 tab - Follow ups/Referrals Follow ups/Referrals: BILLY BOSS [Primary Care Provider] - 3 days - Instructions Instructions: Rhabdomyolysis, Community-Acquired Pneumonia, Adult, [id number]
== END 2016-09-16 16:00 | disposition home or self-care (01) | DRG 194 ==
LOC: ER 08:39 → MED/SURG 11:45
PROVIDERS: ADMIT Internal Medicine; ATTEND Obstetrics & Gynecology Obstetrics
PROC: 3E0234Z Introduction of Serum, Toxoid and Vaccine into Muscle, Percutaneous Approach (ICD-10-PCS; principal; 2016-09-14)
DX: J18.1 Lobar pneumonia, unspecified organism (principal); E86.0 Dehydration; N39.0 Urinary tract infection, site not specified; L03.115 Cellulitis of right lower limb; R94.31 Abnormal electrocardiogram [ECG] [EKG]; I12.9 Hypertensive chronic kidney disease with stage 1 through stage 4 chronic kidney disease, or unspecified chronic kidney disease; N18.3 Chronic kidney disease, stage 3 (moderate); R10.84 Generalized abdominal pain; R07.81 Pleurodynia; R06.02 Shortness of breath; R53.1 Weakness; W18.39XA Other fall on same level, initial encounter; R94.4 Abnormal results of kidney function studies; N28.1 Cyst of kidney, acquired; R26.89 Other abnormalities of gait and mobility; M62.82 Rhabdomyolysis; Z23 Encounter for immunization
CPT/HCPCS: 36415; 51702; 70450; 71010; 72131; 72192; 74176; 80053; 81001; 82150; 82550; 82553; 83690; 83735; 84484; 85025; 85610; 85730; 87040; 87070; 87205; 90471; 93005; 93010; 94640; 94760; 96365; 96367; 96374; 99221; 99231; 99238; 99284; A4222; J0696; J1956; J7620